=== PATIENT | female | born 1995 | race Caucasian/White ===

== ENCOUNTER 2022-03-28 04:44 | Emergency (ER) | payer MEDICAID ==
[~2022-03-28] VITALS: Ht 152.4 cm; Wt 52.2 kg
[2022-03-28 04:54] VITALS: BP_SYST 135
[2022-03-28] MEDS ORDERED: cefTRIAXone 500 MG in LIDOCAINE 1%, 20 ML MDV 1 ML IM ONE (05:45)
[2022-03-28] MEDS ORDERED: DOXY100T2 PO (06:03)
[2022-03-28 06:58] VITALS: BP_SYST 127
== END 2022-03-28 07:00 | disposition home or self-care (01) ==
LOC: SED 04:44
DX: Z11.3 Encounter for screening for infections with a predominantly sexual mode of transmission (principal); A64 Unspecified sexually transmitted disease; F17.210 Nicotine dependence, cigarettes, uncomplicated; Z79.899 Other long term (current) drug therapy
CPT/HCPCS: 99283; 96372; J0696